=== PATIENT | male | born 1940 | race Caucasian/White ===

== ENCOUNTER → 2017-04-16 | Outpatient (CLI) | payer MEDICARE, BC ==
--- NOTE | 2017-04-19 17:28 | MR ---
EXAMINATION TYPE: MR tmj wo con DATE OF EXAM: 04/16/2017 1:39 PM COMPARISON: NONE HISTORY: otalgia lt ear CONTRAST: None TECHNIQUE: Multiplanar multiecho imaging is performed on a 3.0 Olivia magnet through the temporomandib ular joints. Stepwise opening imaging was performed through the temporal mandibular joints. Findings: Left and right temporomandibular joints appear normal in the closed mouth position. Left condyle: There is normal subluxation anterior with open-mouth positioning. The meniscus however is not identified in the remaining trapped at the temporomandibular joint space. Meniscus is poorly v isualized. Right condyle: The right meniscus is not well identified may be trapped at the temporomandibular junc tion. There is normal subluxation of the right condyle. A more normal-appearing meniscus is identifie d series 601 image 20 within the right condyle. This appears normal positioning during the close mout h position. Subluxation and recapture are not demonstrated with the open-mouth imaging IMPRESSIONS: 1. Menisci are poorly visualized bilaterally without obvious subluxation or recapture during open-brett th opening. A right meniscus is visualized on one pulse sequence fairly well, however the left menisc us is not well seen throughout the exam. 2. What appears to be the menisci may be trapped at the temporomandibular joint spaces bilaterally wi thout subluxation or normal positioning during opening of the mandible.
== END | disposition home or self-care (01) ==
LOC: RADMRIMAIN 11:51
PROVIDERS: ATTEND Otolaryngology
DX: H92.02 Otalgia, left ear (principal); M26.622 Arthralgia of left temporomandibular joint
CPT/HCPCS: 70336

== ENCOUNTER → 2022-11-18 | Outpatient (CLI) | payer MEDICARE, BC ==
--- NOTE | 2022-11-18 16:33 | US ---
EXAMINATION TYPE: US venous doppler duplex LE RT DATE OF EXAM: 11/18/2022 4:23 PM COMPARISON: NONE CLINICAL HISTORY: I80.9 PHLEBITIS AND THROMBOPHLEBITIS OF UNSPECIFIE. Pain SIDE PERFORMED: Right TECHNIQUE: The lower extremity deep venous system is examined utilizing real time linear array sonog john with graded compression, doppler sonography and color-flow sonography. VESSELS IMAGED: Common Femoral Vein Deep Femoral Vein Greater Saphenous Vein * Femoral Vein Popliteal Vein Small Saphenous Vein * Proximal Calf Veins (* superficial vessels) Right Leg: Negative for DVT IMPRESSION: No evidence for DVT
== END | disposition home or self-care (01) ==
LOC: RADUSWWP 16:00
PROVIDERS: ATTEND Orthopaedic Surgery
DX: I80.9 Phlebitis and thrombophlebitis of unspecified site (principal)